=== PATIENT | male | born 1975 | race Caucasian/White ===

== ENCOUNTER 2021-03-24 07:52 | Emergency (ER) | payer SELFPAY ==
[2021-03-24 08:08] VITALS: BP 131/89; PULSE 80; RESP 16; TEMP 36.6; O2SAT 98; BMI 31.7
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
--- NOTE | 2021-03-24 10:00 | MHC.CARE ---
CARE Team responded to consult request to meet with this patient who came to the ED for treatment of residual COVID symptoms and reported having been PTSD symptoms such as flashbacks, intrusive memories, nightmares etc. Provided supportive listening, validation, encouragement and psychoeducation to patient. Has [place] Medicaid so is unable to be referred to [place] therapist, showed patient [facility], how to search for and contact providers listed, patient will f/u with PCP at [facility] and CARE Team will check in with patient by phone within 24-48hrs, he is aware and expects the call.
[2021-03-24] MEDS: Ketorolac Tromethamine 30 MG/ML VIAL IM (10:20)
[2021-03-24] MEDS: Ondansetron ODT 4 MG TAB.RAPDIS TRANSLINGU (10:20)
--- NOTE | 2021-03-25 16:12 | MHC.CARE ---
Left message for patient as a follow up to yesterday's intervention. He can call back if needs more help with the referrals, CARE Team does not need to call patient again as he was never considered to be at risk.
== END 2021-03-24 10:24 | disposition home or self-care (01) ==
PROVIDERS: Emergency Provider Emergency Medicine
DX: F43.11 Post-traumatic stress disorder, acute (principal); M79.10 Myalgia, unspecified site; F32.A Depression, unspecified; Z72.89 Other problems related to lifestyle; Z62.810 Personal history of physical and sexual abuse in childhood; Z86.16 Personal history of COVID-19
CPT/HCPCS: 96372; 99284; J1885